=== PATIENT | male | born 1945 | race Caucasian/White ===

== ENCOUNTER 2019-04-02 10:35 | Emergency (ER) | payer MEDICARE, OTHER ==
[~2019-04-02] VITALS: Ht 177.8 cm; Wt 96.6 kg
[~2019-04-02 10:35] MED LIST: GLIP10TA9 PO; LOSA25TA38 PO; METF-370 PO; SIMV-13 PO
[2019-04-02 11:27] LABS: Basophils # (auto) 0.1 uL; Basophils % (auto) 1.2 % (0.0-2.0); Eosinophils # (auto) 0.2 uL; Eosinophils % (auto) 2.5 % (0.0-7.0); Hematocrit 46.3 % (41.0-53.0); Hemoglobin 15.6 g/dL (13.5-17.5); Lymphocytes # (auto) 1.1 uL; Mean Corpuscular Hemoglobin 30.4 pg (28.0-32.0); Mean Corpuscular Hgb Conc. 33.8 g/dL (32.0-36.0); Monocytes # (auto) 0.5 uL; Monocytes % (auto) 6.8 % (0.0-12.0); Neutrophils # (auto) 5.8 uL; Neutrophils % (auto) 75.5 % (37.0-80.0); Nucleated Red Blood Cells % 0.1 %; Platelet Count (auto) 275 10^3/uL (140-450); Red Blood Cells 5.14 10^6/uL (4.5-5.90); Red Cell Distribution Width 12.9 % (11.8-14.3); White Blood Cell 7.7 10^3/uL (4.4-10.8)
[2019-04-02 11:43] LABS: Urine Bacteria NONE SEEN /hpf (None Seen); Urine Blood Negative /uL (Negative); Urine Specific Gravity 1.013 (1.001-1.035); Urine WBC 1 /hpf (0 - 3)
[2019-04-02 11:44] LABS: BUN/Creatinine Ratio 11.6; Calcium 9.4 mg/dL (8.5-10.1)
[2019-04-02 11:47] LABS: Bilirubin, Total 0.5 mg/dL (0.2-1.0); Total Protein 7.8 g/dL (6.4-8.2)
[2019-04-02 13:08] VITALS: BP 137/78
== END 2019-04-02 13:15 | disposition home or self-care (01) ==
LOC: ER 10:37
DX: M54.9 Dorsalgia, unspecified (principal); I25.10 Atherosclerotic heart disease of native coronary artery without angina pectoris; E11.9 Type 2 diabetes mellitus without complications; I10 Essential (primary) hypertension; E78.5 Hyperlipidemia, unspecified; Z79.84 Long term (current) use of oral hypoglycemic drugs
CPT/HCPCS: 36415; 74176; 80053; 81001; 85025; 93005

== ENCOUNTER 2019-06-29 15:12 | Emergency (ER) | payer OTHER ==
[~2019-06-29] VITALS: Ht 177.8 cm; Wt 96.6 kg
[2019-06-29 15:27] VITALS: BP 176/104
[2019-06-29] MEDS ORDERED: SODIUM CHLORIDE 0.9% 500 ML IV ONE (15:29)
[2019-06-29] MEDS ORDERED: ONDANSETRON HCL 4 MG/2 ML VIAL IV ONE (15:30)
[2019-06-29 16:32] LABS: Albumin 3.9 g/dL (3.4-5.0); Calcium 9.2 mg/dL (8.5-10.1); Potassium 4.1 mmol/L (3.5-5.1)
[2019-06-29 16:35] LABS: BUN/Creatinine Ratio 12.8; Bilirubin, Total 0.6 mg/dL (0.2-1.0); Total Protein 7.6 g/dL (6.4-8.2)
[2019-06-29 16:37] LABS: Basophils # (auto) 0.1 uL; Basophils % (auto) 0.9 % (0.0-2.0); Eosinophils # (auto) 0.2 uL; Hematocrit 44.3 % (41.0-53.0); Hemoglobin 15.1 g/dL (13.5-17.5); Lymphocytes # (auto) 1.4 uL; Mean Corpuscular Hemoglobin 30.5 pg (28.0-32.0); Mean Corpuscular Hgb Conc. 34.1 g/dL (32.0-36.0); Mean Corpuscular Volume 89.5 fL (80.0-100.0); Monocytes # (auto) 0.6 uL; Monocytes % (auto) 7.6 % (0.0-12.0); Neutrophils % (auto) 72.5 % (37.0-80.0); Nucleated Red Blood Cells % 0.1 %; Platelet Count (auto) 235 10^3/uL (140-450); Red Blood Cells 4.95 10^6/uL (4.5-5.90); Red Cell Distribution Width 13.1 % (11.8-14.3); White Blood Cell 8.3 10^3/uL (4.4-10.8)
[2019-06-29] MEDS ORDERED: ONDANSETRON ODT 4 MG TAB PO ONE ×2 (17:25→17:30)
== END 2019-06-29 17:33 | disposition home or self-care (01) ==
LOC: ER 15:19
DX: K52.9 Noninfective gastroenteritis and colitis, unspecified (principal); E11.65 Type 2 diabetes mellitus with hyperglycemia; I25.10 Atherosclerotic heart disease of native coronary artery without angina pectoris; J44.9 Chronic obstructive pulmonary disease, unspecified; E78.5 Hyperlipidemia, unspecified; I10 Essential (primary) hypertension; Z79.899 Other long term (current) drug therapy
CPT/HCPCS: 36415; 74176; 80053; 85025; 99284; Q0162

== ENCOUNTER 2023-08-28 16:48 | Inpatient (IN) | payer MEDICARE, OTHER ==
[~2023-08-28] VITALS: Ht 177.8 cm; Wt 85.4 kg
[~2023-08-28 16:48] MED LIST changes: +LOSA25TA15 PO; -LOSA25TA38 PO; -SIMV-13 PO; +SIMV40TA18 PO
[2023-08-28 17:50] VITALS: PULSE 70; RESP 16; O2SAT 97
[2023-08-28] MEDS: SODIUM CHLORIDE 0.9% 1,000 ML IV ONE (17:58)
[2023-08-28 18:29] LABS: Basophils # (auto) 0.1 10 ^3/uL (0-0.2); Basophils % (auto) 0.9 % (0.0-2.0); Eosinophils # (auto) 0.6 10 ^3/uL (0-0.8); Hematocrit 29.3 % (41.0-53.0); Hemoglobin 9.5 g/dL (13.5-17.5); Lymphocytes # (auto) 1.2 10 ^3/uL (0.4-5.4); Mean Corpuscular Hemoglobin 29.5 pg (28.0-32.0); Mean Corpuscular Hgb Conc. 32.5 g/dL (32.0-36.0); Mean Corpuscular Volume 90.8 fL (80.0-100.0); Monocytes # (auto) 0.8 10 ^3/uL (0-1.3); Monocytes % (auto) 6.2 % (0.0-12.0); Neutrophils # (auto) 9.7 10 ^3/uL (1.6-8.6); Neutrophils % (auto) 77.9 % (37.0-80.0); Red Blood Cells 3.23 10^6/uL (4.5-5.90); Red Cell Distribution Width 13.9 % (11.8-14.3); White Blood Cell 12.4 10^3/uL (4.4-10.8)
[2023-08-28 18:45] LABS: INR 1.09 (0.9-1.15); Partial Thromboplastin Time 30.3 SEC (24.5-34.5); Prothrombin Time 11.4 sec (9.3-11.8)
[2023-08-28 18:46] LABS: Alanine Aminotransferase 21 U/L (7-40); Albumin 3.7 g/dL (3.2-4.8); Alkaline Phosphatase 90 U/L (46-116); Anion Gap 10 (5-15); Aspartate Aminotransferase 27 U/L (13-40); BUN/Creatinine Ratio 23.7 (10.0-20.0); Bilirubin, Total 0.6 mg/dL (0.2-1.0); Blood Urea Nitrogen 72 mg/dL (9-23); Calcium 8.5 mg/dL (8.7-10.4); Carbon Dioxide 22 mmol/L (20-30); Chloride 96 mmol/L (98-107); Glucose 109 mg/dL (74-106); Potassium 5.3 mmol/L (3.5-5.1); Sodium 128 mmol/L (136-145); Total Protein 5.9 g/dL (5.7-8.2)
[2023-08-28] MEDS: PIPERACILLIN-TAZOB 3.375GM 100 ML IV ONE (18:56)
[2023-08-28] MEDS: HYDROcodone-ACET 10/325MG TAB PO ONE (20:30)
[2023-08-28] MEDS: ASPirin 81 mg TAB PO ONE (20:30)
[2023-08-28] MEDS ORDERED: ONDANSETRON HCL 4 MG/2 ML VIAL IV PRN (21:15)
[2023-08-28] MEDS ORDERED: NITROGLYCERIN 0.4 MG SL TAB SL PRN (21:15)
[2023-08-28] MEDS ORDERED: ACETAMINOPHEN 325 MG TAB PO PRN (21:15)
[2023-08-28] MEDS ORDERED: MORPHINE SULFATE INJ 2 MG/ml SYRG IV PRN (21:15)
[2023-08-28] MEDS: SODIUM ZIRCONIUM CYCL 10 GM PAK PO ONE (21:49)
[2023-08-28] MEDS: ENOXAPARIN SOD 100 MG/1 ML SYRINGE SC ONE (21:49)
[2023-08-28] MEDS: ALBUMIN 5% 250 ML IV ONE (22:07)
[2023-08-29] MEDS: PHENYLEPHRINE IV 250 ML IV SCH (00:31)
[2023-08-29 06:32] LABS: Basophils # (auto) 0.1 10 ^3/uL (0-0.2); Hemoglobin 8.3 g/dL (13.5-17.5); Lymphocytes # (auto) 1.4 10 ^3/uL (0.4-5.4); Monocytes # (auto) 0.8 10 ^3/uL (0-1.3); Monocytes % (auto) 7.4 % (0.0-12.0); Neutrophils # (auto) 7.9 10 ^3/uL (1.6-8.6); Red Cell Distribution Width 13.5 % (11.8-14.3)
[2023-08-29 06:35] LABS: Eosinophils # (auto) 0.8 10 ^3/uL (0-0.8); Hematocrit 24.6 % (41.0-53.0); Lymphocytes % (auto) 12.5 % (10.0-50.0); Mean Corpuscular Hemoglobin 30.2 pg (28.0-32.0); Mean Corpuscular Hgb Conc. 33.8 g/dL (32.0-36.0); Mean Corpuscular Volume 89.5 fL (80.0-100.0); Neutrophils % (auto) 72.1 % (37.0-80.0); Red Blood Cells 2.75 10^6/uL (4.5-5.90)
[2023-08-29 06:50] LABS: Alanine Aminotransferase 12 U/L (7-40); Alkaline Phosphatase 75 U/L (46-116); Anion Gap 10 (5-15); BUN/Creatinine Ratio 18.9 (10.0-20.0); Calcium 8.4 mg/dL (8.5-10.1); Carbon Dioxide 22 mmol/L (20-30); Chloride 98 mmol/L (98-107); Glucose 92 mg/dL (74-106); Potassium 4.4 mmol/L (3.5-5.1); Sodium 130 mmol/L (136-145)
[2023-08-29 06:52] LABS: Albumin 3.3 g/dL (3.2-4.8); Aspartate Aminotransferase 23 U/L (13-40); Bilirubin, Total 0.7 mg/dL (0.2-1.0); Total Protein 5.4 g/dL (5.7-8.2)
[2023-08-29 06:57] LABS: Blood Urea Nitrogen 57 mg/dL (9-23)
[2023-08-29 07:36] VITALS: PULSE 75; RESP 17; O2SAT 95
[2023-08-29 07:50] LABS: Urine WBC None Seen /hpf (0 - 3)
[2023-08-29 08:05] LABS: Urine Bacteria NONE SEEN /hpf (None Seen); Urine Blood Negative /uL (Negative); Urine Clarity Clear (Clear); Urine Color Colorless (Yellow); Urine Protein, UAD Negative (Negative); Urine Specific Gravity 1.008 (1.001-1.035); Urine Urobilinogen Normal (Negative); Urine pH 5.5 (5.0-8.0)
[2023-08-29] MEDS: cefTRIAXone 1GM/50ML D5W 50 ML IV SCH (08:20)
[2023-08-29] MEDS: AZITHROMYCIN 500MG/ 250ML 250 ML IV SCH (09:42)
[2023-08-29] MEDS: ASPirin 81 mg TAB PO SCH (09:42)
[2023-08-29] MEDS ORDERED: DEXTROSE (50%) 50ML SYRG IV PRN (12:45)
[2023-08-29 12:54] LABS: Protein, Urine < 6.0 mg/dL (0.0-11.9)
[2023-08-29 12:57] LABS: Creatinine, Urine 40.82 mg/dL (30.0-125.0)
[2023-08-29] MEDS: ENOXAPARIN SOD 100 MG/1 ML SYRINGE SC ONE (14:02)
[2023-08-29] MEDS: PIPERACILLIN-TAZOB 3.375GM 100 ML IV SCH (14:03)
[2023-08-29] MEDS: ACCU-CHEK COMFORT CURVE STRIP VI SCH (17:28)
[2023-08-29] MEDS: InsuLIN REG 1unit/0.01ml Soln (100units/ml) SC SCH (17:31)
[2023-08-29 19:15] VITALS: PULSE 85; RESP 18; O2SAT 98
[2023-08-29] MEDS: ATORVASTATIN 20 MG TAB PO SCH (22:17)
[2023-08-29 22:53] VITALS: BP 113/69; PULSE 81; O2SAT 99
[2023-08-29 23:01] VITALS: O2SAT 99
[2023-08-29 23:06] VITALS: BP 113/69; PULSE 81; RESP 18; O2SAT 99
[2023-08-29 23:45] VITALS: BP 112/64; PULSE 78; O2SAT 96
[2023-08-30 02:45] VITALS: PULSE 71; RESP 15; O2SAT 95
[2023-08-30 04:58] LABS: Basophils # (auto) 0.1 10 ^3/uL (0-0.2); Eosinophils # (auto) 0.6 10 ^3/uL (0-0.8); Hemoglobin 9.8 g/dL (13.5-17.5); Lymphocytes # (auto) 1.1 10 ^3/uL (0.4-5.4); Neutrophils # (auto) 9.2 10 ^3/uL (1.6-8.6); White Blood Cell 11.7 10^3/uL (4.4-10.8)
[2023-08-30 05:01] LABS: Basophils % (auto) 0.9 % (0.0-2.0); Hematocrit 29.5 % (41.0-53.0); Lymphocytes % (auto) 9.3 % (10.0-50.0); Mean Corpuscular Hemoglobin 29.9 pg (28.0-32.0); Mean Corpuscular Hgb Conc. 33.2 g/dL (32.0-36.0); Mean Corpuscular Volume 90.1 fL (80.0-100.0); Monocytes # (auto) 0.7 10 ^3/uL (0-1.3); Monocytes % (auto) 6.4 % (0.0-12.0); Neutrophils % (auto) 78.4 % (37.0-80.0); Red Blood Cells 3.27 10^6/uL (4.5-5.90); Red Cell Distribution Width 13.6 % (11.8-14.3)
[2023-08-30 05:13] LABS: Alanine Aminotransferase 15 U/L (7-40); Albumin 3.6 g/dL (3.2-4.8); Alkaline Phosphatase 89 U/L (46-116); Anion Gap 9 (5-15); Aspartate Aminotransferase 22 U/L (13-40); Calcium 8.9 mg/dL (8.5-10.1); Carbon Dioxide 23 mmol/L (20-30); Chloride 106 mmol/L (98-107); Glucose 107 mg/dL (74-106); Potassium 4.8 mmol/L (3.5-5.1); Sodium 138 mmol/L (136-145)
[2023-08-30 05:14] LABS: Bilirubin, Total 0.8 mg/dL (0.2-1.0)
[2023-08-30 05:30] VITALS: O2SAT 98
[2023-08-30 05:34] LABS: Blood Urea Nitrogen 43 mg/dL (9-23)
[2023-08-30] MEDS: PANTOPRAZOLE 40 MG/10 ML VIAL INJ IV SCH (09:37)
[2023-08-30] MEDS: ENOXAPARIN SOD 100 MG/1 ML SYRINGE SC SCH (09:38)
[2023-08-30] MEDS: FUROSEMIDE 20 MG TAB PO ONE (14:41)
[2023-08-30 19:15] VITALS: PULSE 84; RESP 20; O2SAT 100
[2023-08-31 05:17] LABS: Basophils # (auto) 0.1 10 ^3/uL (0-0.2); Basophils % (auto) 1.2 % (0.0-2.0); Eosinophils # (auto) 0.5 10 ^3/uL (0-0.8); Eosinophils % (auto) 5.2 % (0.0-7.0); Hematocrit 30.6 % (41.0-53.0); Hemoglobin 9.9 g/dL (13.5-17.5); Lymphocytes # (auto) 1.2 10 ^3/uL (0.4-5.4); Lymphocytes % (auto) 11.5 % (10.0-50.0); Mean Corpuscular Hemoglobin 29.3 pg (28.0-32.0); Mean Corpuscular Hgb Conc. 32.2 g/dL (32.0-36.0); Mean Corpuscular Volume 90.9 fL (80.0-100.0); Monocytes # (auto) 0.7 10 ^3/uL (0-1.3); Monocytes % (auto) 6.5 % (0.0-12.0); Neutrophils # (auto) 7.6 10 ^3/uL (1.6-8.6); Neutrophils % (auto) 75.6 % (37.0-80.0); Red Blood Cells 3.37 10^6/uL (4.5-5.90); Red Cell Distribution Width 13.8 % (11.8-14.3); White Blood Cell 10.1 10^3/uL (4.4-10.8)
[2023-08-31 05:24] LABS: Chloride 106 mmol/L (98-107); Potassium 4.6 mmol/L (3.5-5.1); Sodium 137 mmol/L (136-145)
[2023-08-31 05:25] LABS: Anion Gap 8 (5-15); Calcium 9.1 mg/dL (8.5-10.1); Carbon Dioxide 23 mmol/L (20-30)
[2023-08-31 05:30] LABS: BUN/Creatinine Ratio 15.7 (10.0-20.0); Blood Urea Nitrogen 35 mg/dL (9-23); Glucose 124 mg/dL (74-106)
[2023-08-31 07:41] VITALS: BP 116/70; PULSE 60; TEMP 97.8
[2023-08-31 07:43] VITALS: RESP 18; O2SAT 98
[2023-08-31] MEDS ORDERED: FUROSEMIDE 20 MG TAB PO SCH (10:00)
[2023-08-31] MEDS ORDERED: PANTOPRAZOLE 40 MG TAB PO SCH (10:00)
== END 2023-08-31 08:02 | disposition short-term general hospital (02) | DRG 871 ==
LOC: ER 16:48 → TELE 21:07 → TELE-EAST 08-30 23:58 → TELE 08-31 00:17
PROVIDERS: ADMIT Nurse Practitioner; ATTEND Internal Medicine
DX: A41.9 Sepsis, unspecified organism (principal); I21.A1 Myocardial infarction type 2; J18.9 Pneumonia, unspecified organism; N17.0 Acute kidney failure with tubular necrosis; I50.23 Acute on chronic systolic (congestive) heart failure; R65.21 Severe sepsis with septic shock; I13.0 Hypertensive heart and chronic kidney disease with heart failure and stage 1 through stage 4 chronic kidney disease, or unspecified chronic kidney disease; E87.1 Hypo-osmolality and hyponatremia; E87.29 Other acidosis; E78.5 Hyperlipidemia, unspecified; I44.0 Atrioventricular block, first degree; E66.9 Obesity, unspecified; J44.9 Chronic obstructive pulmonary disease, unspecified; E83.39 Other disorders of phosphorus metabolism; I25.10 Atherosclerotic heart disease of native coronary artery without angina pectoris; D63.1 Anemia in chronic kidney disease; N18.32 Chronic kidney disease, stage 3b; Z96.653 Presence of artificial knee joint, bilateral; E11.22 Type 2 diabetes mellitus with diabetic chronic kidney disease; I25.2 Old myocardial infarction; Z95.1 Presence of aortocoronary bypass graft; Z95.2 Presence of prosthetic heart valve; Z95.3 Presence of xenogenic heart valve; Z86.73 Personal history of transient ischemic attack (TIA), and cerebral infarction without residual deficits; Z83.3 Family history of diabetes mellitus; Z68.27 Body mass index [BMI] 27.0-27.9, adult
CPT/HCPCS: 36415; 71045; 76775; 78582; 80048; 80053; 81001; 82306; 82570; 82962; 83036; 83605; 83880; 83970; 84100; 84156; 84300; 84443; 84484; 85025; 85379; 85610; 85730; 87040; 93005; 93306; 93970; 94660; 96361; 96365; C9113; G0378; J1815; J2543